=== PATIENT | female | born 1990 | race Caucasian/White ===

== ENCOUNTER 2017-08-31 13:21 | Emergency (ER) | payer OTHER ==
[2017-08-31 13:26] VITALS: BP 122/85
[2017-08-31] MEDS ORDERED: AMOX/CLAV 875 MG/125 MG TABLET PO STA (13:58)
--- NOTE | 2017-08-31 14:26 | ED Physician Documentation ---
PD HPI UPPER EXT INJURY - Stated complaint Stated Complaint: DOG BITE/L HAND - Chief complaint Chief Complaint: Ext Problem - History obtained from History obtained from: Patient - History of Present Illness Location: Left, Hand Where injury occurred: Home Timing - duration: Other (Just prior to arrival.) Associated symptoms: No: Weakness, Numbness, Swelling - Additonal information Additional information: The patient is a 27-year-old female who presents with dog bite to her left hand. She was breaking up a fight between her 2 dogs when one of them bit her left hand. She is right-hand dominant. Her vaccinations are up-to-date. The dog's rabies vaccinations are up-to-date. She denies any other injuries. Review of Systems Ten Systems: 10 systems reviewed and negative Neurologic: denies: Focal weakness, Numbness PD PAST MEDICAL HISTORY - Past Medical History Past Medical History: No Cardiovascular: None Respiratory: None Neuro: None Endocrine/Autoimmune: None - Past Surgical History Past Surgical History: No - Present Medications Home Medications: Ambulatory Orders Medication Instructions Recorded Confirmed Amox/Clav 875/125 [Augmentin] 1 each PO Q12H #14 tablet 08/31/17 Control 1 tab ORAL DAILY 08/31/17 Isotretinoin [Absorica] 30 mg PO BID 08/31/17 08/31/17 - Allergies Allergies/Adverse Reactions: Allergies Allergy/AdvReac Type Severity Reaction Status Date / Time No Known Drug Allergies Allergy Verified 08/31/17 13:26 - Social History Does the pt smoke?: No Smoking Status: Never smoker Does the pt drink ETOH?: No Does the pt have substance abuse?: No - Immunizations Immunizations are current?: Yes PD ED PE NORMAL - Vitals Vital signs reviewed: Yes (normal) - General General: Alert and oriented X 3, Well developed/nourished - HEENT HEENT: Atraumatic - Respiratory Respiratory: No respiratory distress - Derm Derm: No rash - Extremities Extremities: Other (There is a puncture wound on the volar aspect of the left hand, consistent with dog bite. There is no swelling or erythema. She has full flexion and extension against resistance. Distal neurovascular is intact.) - Neuro Neuro: Alert and oriented X 3, No motor deficit, No sensory deficit PD MEDICAL DECISION MAKING - ED course Complexity details: considered differential, d/w patient, d/w family ED course: The patient's presentation is significant for dog bite to the left hand. Treatment in the emergency department included administration of Augmentin 875 mg orally. The wound was cleaned and antibiotic ointment applied. An AlumaFoam splint was applied, involving the middle and ring fingers. She is being discharged with prescription for Augmentin. I discussed with her and her the expected course of injury, antibiotic treatment and outpatient follow-up, as well as potentially worrisome signs or symptoms that should prompt reevaluation in the emergency department. Departure - Departure Disposition: 01 Home, Self Care Clinical Impression: Dog bite of left hand Qualifiers: Encounter type: initial encounter Qualified Code(s): S61.452A - Open bite of left hand, initial encounter Condition: Stable Instructions: ED Bite Dog Follow-Up: [facility] [Provider Group] Prescriptions: Amox/Clav 875/125 [Augmentin] 1 each PO Q12H #14 tablet Comments: Take Augmentin twice daily as prescribed. Eat probiotic yogurt while on antibiotic therapy. Keep your left hand elevated as much of the time as possible. Follow up with your primary physician within 1 week. Return to the emergency department if you develop increasing pain in your hand, particularly inability to move your fingers because of pain. Discharge Date/Time: 08/31/17 14:43
== END 2017-08-31 14:43 | disposition home or self-care (01) ==
LOC: ED 13:21
DX: S61.432A Puncture wound without foreign body of left hand, initial encounter (principal); W54.0XXA Bitten by dog, initial encounter; Y92.019 Unspecified place in single-family (private) house as the place of occurrence of the external cause
CPT/HCPCS: 99283; A9270